=== PATIENT | male | born 1935 | race African-American/Black ===

== ENCOUNTER → 2021-07-19 13:47 | Outpatient (BNVA) | payer MEDICARE, OTHER, SELFPAY | PROVIDERS: Visit Provider Urology | DX: C61 Malignant neoplasm of prostate (principal) | CPT/HCPCS: Q3014 ==

== ENCOUNTER → 2022-01-25 09:40 | Outpatient (BNVA) | payer MEDICARE, OTHER, SELFPAY | PROVIDERS: PCP Hospitalist; Visit Provider Urology | DX: C61 Malignant neoplasm of prostate (principal); M25.569 Pain in unspecified knee; G89.29 Other chronic pain | CPT/HCPCS: 99212 ==

== ENCOUNTER → 2022-07-26 11:17 | Outpatient (BNVA) | payer MEDICARE, OTHER, SELFPAY | PROVIDERS: PCP Hospitalist; Visit Provider Urology | DX: C61 Malignant neoplasm of prostate (principal) | CPT/HCPCS: Q3014 ==

== ENCOUNTER 2023-01-28 14:57 | Outpatient (AMB) | payer MEDICARE, OTHER, SELFPAY ==
[2023-01-28 15:06] VITALS: BP 120/70; PULSE 71
--- NOTE | 2023-01-28 15:06 | HO.NEPHOV_ITS ---
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 He had been on loop diuretics as well as metolazone once a week. For the last many days he has been having worsening edema without any chest pain, shortness of breath, paroxysmal nocturnal dyspnea or orthopnea. His heart rate has been normal. He has no urinary symptoms. He claims to be compliant with a low-sodium diet. He has not had any renal stones for a long time. He otherwise feels well. [facility] Medical History (Updated 02/01/23 @ 06:23 by Shayan Young MD) Hypertension Atrial fibrillation Prostate cancer Hypothyroidism Type I diabetes mellitus Erectile dysfunction Hyperlipidemia GERD (gastroesophageal reflux disease) Cellulitis of left lower extremity Prostate cancer Surgical History H/O aortic valve replacement Social History (Updated 01/28/23 @ 15:09 by Elvira Toledo MA) Alcohol intake: never Patient Tobacco Use Status: Never used Tobacco Vital Signs 01/28/23 15:06 Weight 204 lb 2 oz BP 120/70 Blood Pressure Location Lt brachial Position Sitting Pulse 71 Pulse Source Pulse Oximeter Physical Exam Vital Signs: Last Vital Signs Pulse 71 01/28/23 15:06 BP 120/70 01/28/23 15:06 Const General: comfortable and no acute distress Orientation/consciousness: patient oriented x3 HEENT Head: Yes normocephalic Mouth: Normal oral and palatal mucosa present Eyes EOM: EOMs intact bilaterally Neck Neck: Yes supple Resp Auscultation: clear to auscultation bilaterally Cardio Jugular venous distension: no JVD Rate: regular rate Heart sounds: Murmur heart sound present GI Palpation (GI): Soft to palpation Auscultation: normal bowel sounds General: Yes no CVA tenderness Back/Spine/Pelvis Back: no CVA tenderness Skin General skin exam: no rashes or lesions noted Neuro General: patient oriented x3 and moves all extremities Extrem General: Yes edema Assessment & Plan Assessment & Plan (1) Hypertension: Code(s): I10 - Essential (primary) hypertension Qualifiers: Hypertension type: primary hypertension Qualified Code(s): I10 - Essential (primary) hypertension (2) CKD (chronic kidney disease) stage 3, GFR 30-59 ml/min: Code(s): N18.30 - Chronic kidney disease, stage 3 unspecified Qualifiers: Chronic kidney disease stage 3 subtype: stage 3a (GFR 45-59) Qualified Code(s): N18.31 - Chronic kidney disease, stage 3a (3) Renal stone: Code(s): N20.0 - Calculus of kidney Plan Mr. Buchanan has CKD stage 3 baseline. His renal function has been stable. He has not had any renal stones recently. He should continue furosemide 80 mg twice daily . I increased his metolazone 5 mg to be taken daily for next 5 days followed by 5 mg 2 times a week. He should be strict about low-sodium diet. I didl not make any other medication changes today. Follow-up blood work ordered. All questions answered. Time spent for documentation, patient encounter and retrieval of data 24 minutes. Orders: Orders Electrolytes 01/28/23 I10 - Essential (primary) hypertension, N18.30 - Chronic kidney disease, stage 3 unspecified Blood Urea Nitrogen 01/28/23 I10 - Essential (primary) hypertension, N18.30 - Chronic kidney disease, stage 3 unspecified Calcium 01/28/23 I10 - Essential (primary) hypertension, N18.30 - Chronic kidney disease, stage 3 unspecified Creatinine 01/28/23 I10 - Essential (primary) hypertension, N18.30 - Chronic kidney disease, stage 3 unspecified Uric Acid 01/28/23 I10 - Essential (primary) hypertension, N18.30 - Chronic kidney disease, stage 3 unspecified Medications: New metolazone 5 mg PO DAILY 30 tabs 0RF I10 - Essential (primary) hypertension, N18.30 - Chronic kidney disease, stage 3 unspecified Coding Level of Care Code Est Pt Level 3 (17832) Diagnoses Primary hypertension I10 Hypertension type: primary hypertension Stage 3a chronic kidney disease N18.31 Chronic kidney disease stage 3 subtype: stage 3a (GFR 45-59) Renal stone N20.0
== END 2023-01-28 15:30 | disposition home or self-care (01) ==
PROVIDERS: PCP Hospitalist; Visit Provider Internal Medicine Nephrology
DX: I12.9 Hypertensive chronic kidney disease with stage 1 through stage 4 chronic kidney disease, or unspecified chronic kidney disease (principal); N18.31 Chronic kidney disease, stage 3a; N20.0 Calculus of kidney
CPT/HCPCS: 99213

== ENCOUNTER → 2023-01-28 14:57 | Outpatient (BNVA) | payer MEDICARE, OTHER, SELFPAY | PROVIDERS: PCP Hospitalist; Visit Provider Internal Medicine Nephrology | DX: I12.9 Hypertensive chronic kidney disease with stage 1 through stage 4 chronic kidney disease, or unspecified chronic kidney disease (principal); N18.31 Chronic kidney disease, stage 3a; N20.0 Calculus of kidney; Z79.899 Other long term (current) drug therapy | CPT/HCPCS: 99212 ==

== ENCOUNTER 2023-03-04 11:54 | Outpatient (AMB) | payer MEDICARE, OTHER, SELFPAY ==
--- NOTE | 2023-03-04 11:58 | HO.NEPHOV ---
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 He had been having worsening edema without any chest pain, shortness of breath, paroxysmal nocturnal dyspnea or orthopnea. His diuretics were adjusted at the last visit. His heart rate has been normal. He has no urinary symptoms. He claims to be compliant with a low-sodium diet. He has not had any renal stones for a long time. He otherwise feels well. [facility], [facility] Medical History (Updated 02/01/23 @ 06:23 by Shayan Young MD) Hypertension Atrial fibrillation Prostate cancer Hypothyroidism Type I diabetes mellitus Erectile dysfunction Hyperlipidemia GERD (gastroesophageal reflux disease) Cellulitis of left lower extremity Prostate cancer Surgical History H/O aortic valve replacement Social History Alcohol intake: never Patient Tobacco Use Status: Never used Tobacco Vital Signs 03/04/23 12:05 Height 5 ft 11 in Weight 204 lb BMI 28.4 BP 110/70 Blood Pressure Location Rt brachial Position Sitting Pulse 59 Pulse Source Pulse Oximeter Physical Exam Vital Signs: Last Vital Signs Pulse 59 03/04/23 12:05 BP 110/70 03/04/23 12:05 BMI result Body Mass Index 28.4 Const General: comfortable and no acute distress Orientation/consciousness: patient oriented x3 HEENT Head: Yes normocephalic Mouth: Normal oral and palatal mucosa present Eyes EOM: EOMs intact bilaterally Neck Neck: Yes supple Resp Auscultation: clear to auscultation bilaterally GI Palpation (GI): Soft to palpation Auscultation: normal bowel sounds General: Yes no CVA tenderness Back/Spine/Pelvis Back: no CVA tenderness Skin General skin exam: no rashes or lesions noted Neuro General: patient oriented x3 and moves all extremities Extrem General: Yes no pedal edema Assessment & Plan Assessment & Plan (1) Renal stone: Code(s): N20.0 - Calculus of kidney (2) Hypertension: Code(s): I10 - Essential (primary) hypertension Qualifiers: Hypertension type: primary hypertension Qualified Code(s): I10 - Essential (primary) hypertension (3) CKD (chronic kidney disease) stage 3, GFR 30-59 ml/min: Code(s): N18.30 - Chronic kidney disease, stage 3 unspecified Qualifiers: Chronic kidney disease stage 3 subtype: stage 3a (GFR 45-59) Qualified Code(s): N18.31 - Chronic kidney disease, stage 3a Plan Mr. Buchanan has CKD stage 3 baseline. His renal function has been stable. He has not had any renal stones recently. He should continue furosemide 80 mg twice daily . He can continue metolazone 5 mg 2 times a week. He should be strict about low-sodium diet. I didl not make any other medication changes today. Follow-up blood work ordered. All questions answered. Time spent for documentation, patient encounter and retrieval of data 21 minutes Orders: Orders Electrolytes Today I10 - Essential (primary) hypertension, N18.30 - Chronic kidney disease, stage 3 unspecified, N20.0 - Calculus of kidney Uric Acid Today I10 - Essential (primary) hypertension, N18.30 - Chronic kidney disease, stage 3 unspecified, N20.0 - Calculus of kidney Blood Urea Nitrogen Today I10 - Essential (primary) hypertension, N18.30 - Chronic kidney disease, stage 3 unspecified, N20.0 - Calculus of kidney Creatinine Today I10 - Essential (primary) hypertension, N18.30 - Chronic kidney disease, stage 3 unspecified, N20.0 - Calculus of kidney Coding Level of Care Code Est Pt Level 3 (04511) Diagnoses Renal stone N20.0 Primary hypertension I10 Hypertension type: primary hypertension Stage 3a chronic kidney disease N18.31 Chronic kidney disease stage 3 subtype: stage 3a (GFR 45-59) Results Reviewed Nephrology Results: No Data to Display
[2023-03-04 12:05] VITALS: BP 110/70; PULSE 59; BMI 28.4
== END 2023-03-04 12:28 | disposition home or self-care (01) ==
PROVIDERS: PCP Hospitalist; Visit Provider Internal Medicine Nephrology
DX: N20.0 Calculus of kidney (principal); I10 Essential (primary) hypertension; N18.31 Chronic kidney disease, stage 3a
CPT/HCPCS: 99213

== ENCOUNTER → 2023-03-04 11:54 | Outpatient (BNVA) | payer MEDICARE, OTHER, SELFPAY | PROVIDERS: PCP Hospitalist; Visit Provider Internal Medicine Nephrology | DX: I12.9 Hypertensive chronic kidney disease with stage 1 through stage 4 chronic kidney disease, or unspecified chronic kidney disease (principal); N18.31 Chronic kidney disease, stage 3a; N20.0 Calculus of kidney | CPT/HCPCS: 99212 ==

== ENCOUNTER 2023-04-11 10:08 | Outpatient (AMB) | payer MEDICARE, OTHER, SELFPAY ==
--- NOTE | 2023-04-11 10:09 | A.OFFVIS_ITS ---
Intake Intake Visit Reasons: PSA/Med Review(SET) Intake Note: Patient is Present for Telephone Follow Up PSA Urology Med: Finasteride, Tamsulosin Antibiotic Allergy: None Blood Thinner: Warfarin Allergies No Known Allergies Allergy (Verified 03/04/23 12:07) Medication List - Last Reconciled 04/11/23 by Herrera Hoyos MD allopurinol 100 mg PO DAILY atorvastatin 40 mg PO DAILY blood sugar diagnostic (OneTouch Ultra Test strips) As directed finasteride 5 mg PO DAILY 90 days fluticasone propionate 50 mcg/actuation sprays intranasal furosemide 80 mg (2 x 40 mg) PO BID 90 days insulin detemir U-100 (Levemir FlexTouch U-100 Insulin) units subcut levocetirizine 5 mg PO DAILY levothyroxine 150 mcg PO DAILY metolazone mg PO metolazone 5 mg PO DAILY metoprolol succinate ER 100 mg PO DAILY pen needle, diabetic (BD Ultra-Fine Yoanna Pen Needle) As directed potassium chloride ER 20 mEq PO DAILY prednisone 20 mg PO DAILY tamsulosin 0.4 mg PO BEDTIME 90 days tramadol 50 mg PO TID PRN warfarin (Jantoven) mg PO HPI HPI Comments History of Present Illness Details Ty Buchanan is a very pleasant male. He is a patient of Dr. Reddy. He is seen for the following urologic conditions. - prostate cancer - lower urinary tract symptoms Telemedicine Evaluation 15 min Consultation Doximity Jeremy Video attempted Six month follow-up with well controlled PSA Current therapy finasteride PSA low Refill tamsulosin Last DEXA scan 2015. Will organize since had osteopenia and has had subsequent GnRH therapy. Prostate cancer:? Diagnosis 1998 initial therapy external beam radiation subseq uent intermittent hormone therapy for rising PSA ? PSA stable - current control finasteride ?Review in 6m. ? Prostate cancer was diagnosed?1998. PSA 11.2. ? Diagnosis was reached by?needle biopsy, for elevated PSA.? The Amy grade is?3+4.? TNM Classification of Malignant Tumours (TNM)?T1c.? The D'Anu (NCCN) risk category is?Intermediate Risk (PSA 10-20, Gl 7, T2).? Initial therapy included?1998 Primary treatment, External Beam Radiation Additional treatment, Hormonal Blockade - Intermittent. PSA alan 0.0 ?July 2015, Hormonal Blockade - Intermittent, with, GnRH agonists, Antiandrogen, 5AR alan 0.0 ?02/07 GnRH 6m ? Recent labs included?a PSA (prostate-specific antigen) June 2014 4.8, ?May 2015 16 , doubling time < 12 months, trending upward, ?October 2015 , a PSA (prostate-specific antigen), < 0.1, a testosterone, 20-50 ng/dL ?January 2016 - , a testosterone 7 ?July 2016 , a PSA (prostate-specific antigen), < 0.1, a testosterone 40 ?10/08 , , a PSA (prostate-specific antigen), < 0.1 ?07/10 PSA < 0.1, 03/10 PSA < 0.1, T 60, 11/09 , a PSA (prostate-specific antigen), < 0.1, T 360, 03/11 0.2, 07/11 0.2 T 400, ?12/11 0.2 T 350, 06/11 0.2 T 447, 10/11 0.2. - 08/13 2.4, 01/13 0.7, 07/15 0.4, 04/17 0.3 ? Recent imaging included?a bone scan July 2015 , with no evidence of metastasis ?, a DEXA scan July 2015 normal.? Associated conditions ? erectile dysfunction ?Yes ? hematuria ?No ? hot flashes ?Yes ? incontinence ?No ? osteopenia ?Yes 08/07 Dexa scan ? pathologic fracture ?No ? radiation cystitis ?No ? rectal urgency ?Yes ? Therapeutic plan:?Continue with finasteride. Check PSA in 6 months.? PFS Medical History Hypertension Atrial fibrillation Prostate cancer Hypothyroidism Type I diabetes mellitus Erectile dysfunction Hyperlipidemia GERD (gastroesophageal reflux disease) Cellulitis of left lower extremity Prostate cancer Surgical History H/O aortic valve replacement Social History Alcohol intake: never Patient Tobacco Use Status: Never used Tobacco Review of Systems Const All systems reviewed & are unremarkable except as noted in HPI and below Reports no additional complaints Resp Reports no additional complaints GI Reports no additional complaints Reports as per HPI Musc Reports no additional complaints Physical Exam Telemedicine evaluation Appropriate responses Regular breathing rate and rhythm HEENT Head: Yes normal to inspection Ears: hearing grossly normal bilaterally Eyes General: appearance normal, both eyes and all related structures Neck Neck: Yes normal visual inspection Chest Chest palpation & inspection: normal inspection of the chest Resp Effort & Inspection: normal respiratory effort and able to speak in complete sentences Assessment & Plan Assessment & Plan (1) Osteopenia: Code(s): M85.80 - Other specified disorders of bone density and structure, unspecified site (2) Prostate cancer: Code(s): C61 - Malignant neoplasm of prostate Plan Six-month follow-up DEXA and PSA Orders: Orders XR DEXA axial skeleton 6 Months M85.80 - Other specified disorders of bone density and structure, unspecified site Prostate Specific Antigen 6 Months M85.80 - Other specified disorders of bone density and structure, unspecified site Medications: Refilled finasteride 5 mg PO DAILY 90 days 90 tabs 1RF C61 - Malignant neoplasm of prostate tamsulosin 0.4 mg PO BEDTIME 90 days 90 caps 1RF Patient Instructions: Imaging studies, laboratory and physical exam results were discussed and reviewed in detail. No major barriers to patient understanding were identified. An opportunity to ask questions regarding the treatment plan was provided. All questions were answered. The patient expressed understanding and agreement with the above treatment plan. The patient is aware they should contact our office by phone for worsening of their current condition or the appearance of new urologic symptoms. Compliance is encouraged with any medications and followup testing that is ordered. It is a privilege to participate in the urologic care of your patient. If you have any questions or concerns regarding treatment for the above conditions, or other urologic issues, please do not hesitate to contact me. The office telephone contact is [phone]. This note is constructed using voice recognition software. While every effort has been made to ensure accuracy parts back counter man errors may have been included. Yours sincerely, Dr Herrera Hoyos MD, [facility] - Urology Providers of Expert, Compassionate Care for the Genitourinary System Telehealth Telehealth Location of provider rendering services: practice address Location of patient: address on file Patient Identification confirmed using: Name, : Yes Telehealth method: video Patient verbally consented to treatment: Yes Patient verbally consented to billing insurance company: Yes Patient informed of any privacy concerns related to visit: Yes Coding Level of Care Code Tele Est Pt Level 4 (37913) Diagnoses Osteopenia M85.80 Prostate cancer C61
== END 2023-04-11 11:02 | disposition home or self-care (01) ==
LOC: HO.HUSH 10:08
PROVIDERS: PCP Hospitalist; Visit Provider Urology
DX: M85.80 Other specified disorders of bone density and structure, unspecified site (principal); C61 Malignant neoplasm of prostate
CPT/HCPCS: 99213

== ENCOUNTER → 2023-04-11 10:08 | Outpatient (BNVA) | payer MEDICARE, OTHER, SELFPAY | PROVIDERS: PCP Hospitalist; Visit Provider Urology ==

== ENCOUNTER 2023-06-04 11:40 | Outpatient (AMB) | payer MEDICARE, OTHER, SELFPAY ==
[2023-06-04 11:46] VITALS: BP 114/60; PULSE 96; O2SAT 97; BMI 31.2
--- NOTE | 2023-06-04 11:46 | HO.NEPHOV ---
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 He has been having worsening edema without any chest pain, shortness of breath, paroxysmal nocturnal dyspnea or orthopnea. His heart rate has been normal. He is not very compliant with a low-sodium diet. He has not had any renal stones for a long time. [facility] Medical History Hypertension Atrial fibrillation Prostate cancer Hypothyroidism Type I diabetes mellitus Erectile dysfunction Hyperlipidemia GERD (gastroesophageal reflux disease) Cellulitis of left lower extremity Prostate cancer Surgical History H/O aortic valve replacement Social History Alcohol intake: never Patient Tobacco Use Status: Never used Tobacco Vital Signs 06/04/23 11:46 Height 5 ft 11 in Weight 224 lb BMI 31.2 BP 114/60 Blood Pressure Location Rt brachial Position Sitting Pulse 96 Pulse Source Pulse Oximeter Pulse Oximetry (%) 97 Oxygen Delivery Method Room Air Physical Exam Vital Signs: Last Vital Signs Pulse 96 06/04/23 11:46 BP 114/60 06/04/23 11:46 Pulse Ox 97 06/04/23 11:46 Oxygen Delivery Method Room Air 06/04/23 11:46 BMI result Body Mass Index 31.2 Const General: comfortable and no acute distress Orientation/consciousness: patient oriented x3 HEENT Head: Yes normocephalic Mouth: Normal oral and palatal mucosa present Eyes EOM: EOMs intact bilaterally Neck Neck: Yes supple Resp Auscultation: clear to auscultation bilaterally Cardio Jugular venous distension: no JVD Rate: regular rate GI Palpation (GI): Soft to palpation Auscultation: normal bowel sounds General: Yes no CVA tenderness Back/Spine/Pelvis Back: no CVA tenderness Skin General skin exam: no rashes or lesions noted Neuro General: patient oriented x3 and moves all extremities Extrem Other: Cellulitis R lower leg Bipedal edema +++ Assessment & Plan Assessment & Plan (1) Cellulitis: Code(s): L03.90 - Cellulitis, unspecified Qualifiers: Site of cellulitis: extremity Site of cellulitis of extremity: lower extremity Laterality: right Qualified Code(s): L03.115 - Cellulitis of right lower limb (2) CKD (chronic kidney disease) stage 3, GFR 30-59 ml/min: Code(s): N18.30 - Chronic kidney disease, stage 3 unspecified Qualifiers: Chronic kidney disease stage 3 subtype: stage 3a (GFR 45-59) Qualified Code(s): N18.31 - Chronic kidney disease, stage 3a (3) Hypertension: Code(s): I10 - Essential (primary) hypertension Qualifiers: Hypertension type: primary hypertension Qualified Code(s): I10 - Essential (primary) hypertension (4) Renal stone: Code(s): N20.0 - Calculus of kidney (5) Edema: Code(s): R60.9 - Edema, unspecified Qualifiers: Edema type: localized Qualified Code(s): R60.0 - Localized edema Plan Mr. Buchanan has CKD stage 3 baseline. His renal function had been stable. I prescribed him Doxycycline 100 mg bid for 10 days. He has not had any renal stones recently. I increased his furosemide to 120 mg twice daily for 5 days and reduce it to 80 mg bid after the increased course for 5 days. I also increased his metolazone to 5 mg daily for 3 days followed by 2 times a week. He should be strict about low-sodium diet. I did not make any other medication changes today. Follow-up blood work ordered. All questions answered. Orders: Orders Blood Urea Nitrogen Today I10 - Essential (primary) hypertension, N18.30 - Chronic kidney disease, stage 3 unspecified, N20.0 - Calculus of kidney Electrolytes Today I10 - Essential (primary) hypertension, N18.30 - Chronic kidney disease, stage 3 unspecified, N20.0 - Calculus of kidney Creatinine Today I10 - Essential (primary) hypertension, N18.30 - Chronic kidney disease, stage 3 unspecified, N20.0 - Calculus of kidney Uric Acid Today I10 - Essential (primary) hypertension, N18.30 - Chronic kidney disease, stage 3 unspecified, N20.0 - Calculus of kidney Medications: New doxycycline hyclate 100 mg PO BID 20 caps 0RF Coding Level of Care Code Est Pt Level 4 (32963) Diagnoses Cellulitis of right lower extremity L03.115 Site of cellulitis: extremity Site of cellulitis of extremity: lower extremity Laterality: right Stage 3a chronic kidney disease N18.31 Chronic kidney disease stage 3 subtype: stage 3a (GFR 45-59) Primary hypertension I10 Hypertension type: primary hypertension Renal stone N20.0 Localized edema R60.0 Edema type: localized Results Reviewed Nephrology Results: No Data to Display
== END 2023-06-04 12:28 | disposition home or self-care (01) ==
PROVIDERS: PCP Hospitalist; Visit Provider Internal Medicine Nephrology
DX: L03.115 Cellulitis of right lower limb (principal); N18.31 Chronic kidney disease, stage 3a; I10 Essential (primary) hypertension; N20.0 Calculus of kidney; R60.0 Localized edema
CPT/HCPCS: 99214

== ENCOUNTER → 2023-06-04 11:40 | Outpatient (BNVA) | payer MEDICARE, OTHER, SELFPAY | PROVIDERS: PCP Hospitalist; Visit Provider Internal Medicine Nephrology | DX: I12.9 Hypertensive chronic kidney disease with stage 1 through stage 4 chronic kidney disease, or unspecified chronic kidney disease (principal); N18.31 Chronic kidney disease, stage 3a; N20.0 Calculus of kidney; R60.0 Localized edema; L03.115 Cellulitis of right lower limb | CPT/HCPCS: 99212 ==

== ENCOUNTER 2023-08-01 09:38 | Outpatient (AMB) | payer MEDICARE, OTHER, SELFPAY ==
[2023-08-01 09:51] VITALS: BP 110/60; PULSE 102; O2SAT 100; BMI 30.3
--- NOTE | 2023-08-01 09:51 | HO.NEPHOV ---
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 He has been having worsening edema without any chest pain, shortness of breath, paroxysmal nocturnal dyspnea or orthopnea. He recently had cellulitis and was in the hospital and rehab. His medications have been changed and he is confused with the medication changes. His heart rate has been normal. He is not very compliant with a low-sodium diet. He has not had any renal stones for a long time [facility] Medical History Hypertension Atrial fibrillation Prostate cancer Hypothyroidism Type I diabetes mellitus Erectile dysfunction Hyperlipidemia GERD (gastroesophageal reflux disease) Cellulitis of left lower extremity Prostate cancer Surgical History H/O aortic valve replacement Social History Alcohol intake: never Patient Tobacco Use Status: Never used Tobacco Physical Exam Vital Signs: Last Vital Signs Pulse 102 H 08/01/23 09:51 BP 110/60 08/01/23 09:51 Pulse Ox 100 08/01/23 09:51 Oxygen Delivery Method Room Air 08/01/23 09:51 BMI result Body Mass Index 30.3 Const General: comfortable and no acute distress Orientation/consciousness: patient oriented x3 HEENT Head: Yes normocephalic Mouth: Normal oral and palatal mucosa present Eyes EOM: EOMs intact bilaterally Neck Neck: Yes supple Resp Auscultation: clear to auscultation bilaterally Cardio Jugular venous distension: no JVD Rate: regular rate GI Palpation (GI): Soft to palpation Auscultation: normal bowel sounds General: Yes no CVA tenderness Back/Spine/Pelvis Back: no CVA tenderness Skin General skin exam: no rashes or lesions noted Neuro General: patient oriented x3 and moves all extremities Results Reviewed Nephrology Results: No Data to Display Assessment & Plan Assessment & Plan (1) Hypertension: Code(s): I10 - Essential (primary) hypertension Category: Medical Qualifiers: Hypertension type: primary hypertension Qualified Code(s): I10 - Essential (primary) hypertension (2) CKD (chronic kidney disease) stage 3, GFR 30-59 ml/min: Code(s): N18.30 - Chronic kidney disease, stage 3 unspecified Category: Medical Qualifiers: Chronic kidney disease stage 3 subtype: stage 3a (GFR 45-59) Qualified Code(s): N18.31 - Chronic kidney disease, stage 3a Plan Mr. Buchanan has CKD stage 3 baseline. His renal function are currently stable. He has not had any renal stones recently. He can continue current dose of torsemide. I restarted metolazone 5 mg daily once a week. I D/Bill his KCl given he is on Spironolactone. He should be strict about low-sodium diet. I did not make any other medication changes today. Follow-up blood work ordered. All questions answered. Time spent reviewing data, encounter and documentation 53 minutes. He can have SGLT2 inhibitor. We may have to back off on Metolazone when he is initiated on SGLT2 I. Follow up given Orders: Orders Blood Urea Nitrogen Today I10 - Essential (primary) hypertension, N18.31 - Chronic kidney disease, stage 3a Creatinine Today I10 - Essential (primary) hypertension, N18.31 - Chronic kidney disease, stage 3a Electrolytes Today I10 - Essential (primary) hypertension, N18.31 - Chronic kidney disease, stage 3a Calcium Today I10 - Essential (primary) hypertension, N18.31 - Chronic kidney disease, stage 3a Coding Level of Care Code Est Pt Level 5 (53728) Diagnoses Primary hypertension I10 Hypertension type: primary hypertension Stage 3a chronic kidney disease N18.31 Chronic kidney disease stage 3 subtype: stage 3a (GFR 45-59)
== END 2023-08-01 10:25 | disposition home or self-care (01) ==
PROVIDERS: PCP Hospitalist; Visit Provider Internal Medicine Nephrology
DX: I12.9 Hypertensive chronic kidney disease with stage 1 through stage 4 chronic kidney disease, or unspecified chronic kidney disease (principal); N18.31 Chronic kidney disease, stage 3a
CPT/HCPCS: 99215

== ENCOUNTER → 2023-08-01 09:38 | Outpatient (BNVA) | payer MEDICARE, OTHER, SELFPAY | PROVIDERS: PCP Hospitalist; Visit Provider Internal Medicine Nephrology | DX: I12.9 Hypertensive chronic kidney disease with stage 1 through stage 4 chronic kidney disease, or unspecified chronic kidney disease (principal); N18.31 Chronic kidney disease, stage 3a | CPT/HCPCS: 99212 ==

== ENCOUNTER 2023-08-27 13:25 | Outpatient (AMB) | payer MEDICARE, OTHER, SELFPAY ==
[2023-08-27 13:43] VITALS: BP 110/62; PULSE 64; O2SAT 98; BMI 28.3
--- NOTE | 2023-08-27 13:43 | HO.NEPHOV ---
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 He had been having worsening edema without any chest pain, shortness of breath, paroxysmal nocturnal dyspnea or orthopnea, which is better . He recently had cellulitis and was in the hospital and rehab at that time.His heart rate has been normal. He is not very compliant with a low-sodium diet. He has not had any renal stones for a long time [facility] Medical History Hypertension Atrial fibrillation Prostate cancer Hypothyroidism Type I diabetes mellitus Erectile dysfunction Hyperlipidemia GERD (gastroesophageal reflux disease) Cellulitis of left lower extremity Prostate cancer Surgical History H/O aortic valve replacement Social History Alcohol intake: never Patient Tobacco Use Status: Never used Tobacco Physical Exam Vital Signs: Last Vital Signs Pulse 64 08/27/23 13:43 BP 110/62 08/27/23 13:43 Pulse Ox 98 08/27/23 13:43 Oxygen Delivery Method Room Air 08/27/23 13:43 BMI result Body Mass Index 28.3 Const General: comfortable and no acute distress Orientation/consciousness: patient oriented x3 HEENT Head: Yes normocephalic Mouth: Normal oral and palatal mucosa present Eyes EOM: EOMs intact bilaterally Neck Neck: Yes supple Resp Auscultation: clear to auscultation bilaterally Cardio Jugular venous distension: no JVD Rate: regular rate GI Palpation (GI): Soft to palpation Auscultation: normal bowel sounds General: Yes no CVA tenderness Back/Spine/Pelvis Back: no CVA tenderness Skin General skin exam: no rashes or lesions noted Neuro General: patient oriented x3 and moves all extremities Extrem General: Yes no pedal edema Results Reviewed Nephrology Results: No Data to Display Assessment & Plan Assessment & Plan (1) CKD (chronic kidney disease) stage 3, GFR 30-59 ml/min: Code(s): N18.30 - Chronic kidney disease, stage 3 unspecified Category: Medical Qualifiers: Chronic kidney disease stage 3 subtype: stage 3a (GFR 45-59) Qualified Code(s): N18.31 - Chronic kidney disease, stage 3a (2) Hypertension: Code(s): I10 - Essential (primary) hypertension Category: Medical Qualifiers: Hypertension type: primary hypertension Qualified Code(s): I10 - Essential (primary) hypertension (3) Renal stone: Code(s): N20.0 - Calculus of kidney Category: Medical Plan Mr. Buchanan has CKD stage 3 baseline. His renal function are currently stable. He has not had any renal stones recently. He can continue current dose of torsemide. I restarted metolazone 5 mg daily once a week. I D/Bill his KCl at the last visit given he is on Spironolactone. He should be strict about low-sodium diet. I did not make any other medication changes today. Follow-up blood work ordered. All questions answered. He can have SGLT2 inhibitor. We may have to back off on Metolazone when he is initiated on SGLT2 I. Follow up given Orders: Orders Creatinine Today I10 - Essential (primary) hypertension, N18.31 - Chronic kidney disease, stage 3a, N20.0 - Calculus of kidney Blood Urea Nitrogen Today I10 - Essential (primary) hypertension, N18.31 - Chronic kidney disease, stage 3a, N20.0 - Calculus of kidney Electrolytes Today I10 - Essential (primary) hypertension, N18.31 - Chronic kidney disease, stage 3a, N20.0 - Calculus of kidney Creatinine 3 Months I10 - Essential (primary) hypertension, N18.31 - Chronic kidney disease, stage 3a, N20.0 - Calculus of kidney Blood Urea Nitrogen 3 Months I10 - Essential (primary) hypertension, N18.31 - Chronic kidney disease, stage 3a, N20.0 - Calculus of kidney Electrolytes 3 Months I10 - Essential (primary) hypertension, N18.31 - Chronic kidney disease, stage 3a, N20.0 - Calculus of kidney Calcium Today I10 - Essential (primary) hypertension, N18.31 - Chronic kidney disease, stage 3a, N20.0 - Calculus of kidney Uric Acid Today I10 - Essential (primary) hypertension, N18.31 - Chronic kidney disease, stage 3a, N20.0 - Calculus of kidney Coding Level of Care Code Est Pt Level 4 (49383) Diagnoses Stage 3a chronic kidney disease N18.31 Chronic kidney disease stage 3 subtype: stage 3a (GFR 45-59) Primary hypertension I10 Hypertension type: primary hypertension Renal stone N20.0
== END 2023-08-27 14:06 | disposition home or self-care (01) ==
PROVIDERS: PCP Hospitalist; Visit Provider Internal Medicine Nephrology
DX: N18.31 Chronic kidney disease, stage 3a (principal); I10 Essential (primary) hypertension; N20.0 Calculus of kidney
CPT/HCPCS: 99214

== ENCOUNTER → 2023-08-27 13:25 | Outpatient (BNVA) | payer MEDICARE, OTHER, SELFPAY | PROVIDERS: PCP Hospitalist; Visit Provider Internal Medicine Nephrology | DX: I12.9 Hypertensive chronic kidney disease with stage 1 through stage 4 chronic kidney disease, or unspecified chronic kidney disease (principal); N18.31 Chronic kidney disease, stage 3a; N20.0 Calculus of kidney | CPT/HCPCS: 36415; 80051; 82310; 82565; 84520; 84550; 99212 ==

== ENCOUNTER 2023-08-27 14:08 | Outpatient (REF) | payer MEDICARE, OTHER, SELFPAY ==
[2023-08-27 18:32] LABS: Anion Gap 15 (12-20); Blood Urea Nitrogen 64 mg/dL (9-16); Calcium 9.2 mg/dL (8.4-10.2); Carbon Dioxide 32 mmol/L (22-29); Chloride 96 mmol/L (96-108); Estimated Glomerular Filt Rate 42; Potassium 3.1 mmol/L (3.3-5.1); Sodium 140 mmol/L (135-145); Uric Acid 10.9 mg/dL (3.4-7.0)
== END 2023-08-27 14:09 | disposition home or self-care (01) ==
LOC: HO.HKASLDS 14:08
PROVIDERS: Visit Provider Internal Medicine Nephrology
DX: Z13.89 Encounter for screening for other disorder (principal)
CPT/HCPCS: 36415; 80051; 82310; 82565; 84520; 84550

== ENCOUNTER 2023-11-21 13:50 | Outpatient (REF) | payer MEDICARE, OTHER, SELFPAY ==
--- NOTE | ~2023-11-21 | MM_ITS ---
EXAMINATION: BONE DENSITOMETRY CLINICAL INDICATION: Osteopenia. COMPARISON: This is the patient's baseline examination. TECHNIQUE: Using a [employer] DXA System (software version: 13.1) manufactured by [employer], dual-energy x-ray absorptiometry was performed of the lumbar spine and left hip. The images are of good technical quality. Summary results are attached. FINDINGS: LEFT FEMUR, NECK: BMD 0.732 g/cm2, Z-score -2.2, T-score -2.6, osteoporosis. LEFT FEMUR, TOTAL: BMD 0.858 g/cm2, Z-score -1.5, T-score -1.7, osteopenia. AP SPINE L1-L4: BMD 1.664 g/cm2, Z-score 3.3, T-score 3.7, normal. IDENTIFIED RISK FACTORS: Secondary osteoporosis (intestinal or bowel disease). HISTORY OF FRACTURE: None listed. MEDICATIONS: Multivitamin. MM/XR DEXA axial skeleton IMPRESSION: 1. DIAGNOSIS: Osteoporosis based on the lowest T-score value of -2.6 in the femoral neck applying World Health Organization criteria. 2. 10-YEAR FRACTURE RISK PREDICTION, FRAX: According to the guidelines, FRAX calculation should only be performed on patients in the osteopenia bone density category. Therefore, FRAX was not performed on this patient. 3. Treatment Recommendations: NOF guidelines recommend consideration for treatment in postmenopausal women and men age 50 and older presenting with the following: -A hip or vertebral (clinical or morphometric) fracture. -T-score less than or equal to -2.5 at the femoral neck or spine after appropriate evaluation to exclude secondary causes. -Low bone mass at the hip or spine and a 10-year fracture probability by FRAX of greater than or equal to 3% for hip fracture or greater than or equal to 20% for major osteoporotic fracture based on the [place] adapted WHO algorithm. 4. Other Recommendations: All treatment decisions require clinical judgment and consideration of individual patient factors, including patient preferences, comorbidities, previous drug use, risk factors not captured in the FRAX model (e.g. frailty, falls, vitamin D deficiency, increased bone turnover, interval significant decline in bone density) and possible under or overestimation of fracture risk by FRAX. Additional medical evaluation for secondary cause of low bone mineral density may be appropriate. FUTURE SCAN RECOMMENDATION: People with diagnosed cases of osteoporosis or at high risk for fracture should have regular bone mineral density tests. For patients eligible for Medicare, routine testing is allowed once every 2 years. The testing frequency can be increased to one year for patients who have rapidly progressing disease, those who are receiving or discontinuing medical therapy to restore bone mass, or have additional risk factors. Electronically signed by: Gilbert Martinez MD 11/26/2023 11:15 AM JACINTO
== END 2023-11-21 13:51 | disposition home or self-care (01) ==
LOC: HO.MAMMO 13:50
PROVIDERS: PCP Hospitalist; Visit Provider Urology
DX: Z13.820 Encounter for screening for osteoporosis (principal); M85.80 Other specified disorders of bone density and structure, unspecified site; M81.0 Age-related osteoporosis without current pathological fracture
CPT/HCPCS: 77080

== ENCOUNTER 2023-11-26 14:05 | Outpatient (AMB) | payer MEDICARE, OTHER, SELFPAY ==
--- NOTE | 2023-11-26 14:13 | HO.NEPHOV_ITS ---
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 He had been having edema without any chest pain, shortness of breath, paroxysmal nocturnal dyspnea or orthopnea, which is better . He has H/O recent cellulitis and was in the hospital and rehab at that time.His heart rate has been normal. He is not very compliant with a low-sodium diet. He has not had any renal stones for a long time. His serum creatinine is close to baseline [facility] Medical History Hypertension Atrial fibrillation Prostate cancer Hypothyroidism Type I diabetes mellitus Erectile dysfunction Hyperlipidemia GERD (gastroesophageal reflux disease) Cellulitis of left lower extremity Prostate cancer Surgical History H/O aortic valve replacement Social History Alcohol intake: never Patient Tobacco Use Status: Never used Tobacco Review of Systems Const All systems reviewed & are unremarkable except as noted in HPI and below Physical Exam Vital Signs: Last Vital Signs Pulse 71 11/26/23 14:23 BP 110/60 11/26/23 14:23 Pulse Ox 98 11/26/23 14:23 Oxygen Delivery Method Room Air 11/26/23 14:23 BMI result Body Mass Index 29.1 Const General: comfortable and no acute distress Orientation/consciousness: patient oriented x3 HEENT Head: Yes normocephalic Mouth: Normal oral and palatal mucosa present Eyes EOM: EOMs intact bilaterally Neck Neck: Yes supple Resp Auscultation: clear to auscultation bilaterally Cardio Jugular venous distension: no JVD Rate: regular rate GI Palpation (GI): Soft to palpation Auscultation: normal bowel sounds General: Yes no CVA tenderness Back/Spine/Pelvis Back: no CVA tenderness Skin General skin exam: no rashes or lesions noted Neuro General: patient oriented x3 and moves all extremities Results Reviewed Nephrology Results: Sodium 140 mmol/L (135-145) 08/27/23 Potassium 3.1 mmol/L (3.3-5.1) L 08/27/23 Chloride 96 mmol/L (96-108) 08/27/23 Carbon Dioxide 32 mmol/L (22-29) H 08/27/23 BUN 64 mg/dL (9-16) H 08/27/23 Creatinine 1.56 mg/dL (0.5-1.4) H 08/27/23 Calcium 9.2 mg/dL (8.4-10.2) 08/27/23 Assessment & Plan Assessment & Plan (1) CKD (chronic kidney disease) stage 3, GFR 30-59 ml/min: Code(s): N18.30 - Chronic kidney disease, stage 3 unspecified Category: Medical Qualifiers: Chronic kidney disease stage 3 subtype: stage 3a (GFR 45-59) Qualified Code(s): N18.31 - Chronic kidney disease, stage 3a (2) Hypertension: Code(s): I10 - Essential (primary) hypertension Category: Medical Qualifiers: Hypertension type: primary hypertension Qualified Code(s): I10 - Essential (primary) hypertension (3) Renal stone: Code(s): N20.0 - Calculus of kidney Category: Medical Plan Mr. Buchanan has CKD stage 3 baseline. His renal function are currently stable. He has not had any renal stones recently. He can continue current dose of torsemide. He is on Spironolactone. He should be strict about low-sodium diet. I did not make any other medication changes today. Follow-up blood work ordered. All questions answered. He is on SGLT2 inhibitor. Follow up given Orders: Orders Electrolytes Today I10 - Essential (primary) hypertension, N18.31 - Chronic kidney disease, stage 3a, N20.0 - Calculus of kidney Blood Urea Nitrogen Today I10 - Essential (primary) hypertension, N18.31 - Chronic kidney disease, stage 3a, N20.0 - Calculus of kidney Creatinine Today I10 - Essential (primary) hypertension, N18.31 - Chronic kidney disease, stage 3a, N20.0 - Calculus of kidney Blood Urea Nitrogen 3 Months I10 - Essential (primary) hypertension, N18.31 - Chronic kidney disease, stage 3a, N20.0 - Calculus of kidney Creatinine 3 Months I10 - Essential (primary) hypertension, N18.31 - Chronic kidney disease, stage 3a, N20.0 - Calculus of kidney Electrolytes 3 Months I10 - Essential (primary) hypertension, N18.31 - Chronic kidney disease, stage 3a, N20.0 - Calculus of kidney Uric Acid 3 Months N18.31 - Chronic kidney disease, stage 3a Coding Level of Care Code Est Pt Level 4 (29034) Diagnoses Stage 3a chronic kidney disease N18.31 Chronic kidney disease stage 3 subtype: stage 3a (GFR 45-59) Primary hypertension I10 Hypertension type: primary hypertension Renal stone N20.0
[2023-11-26 14:23] VITALS: BP 110/60; PULSE 71; O2SAT 98; BMI 29.1
== END 2023-11-26 14:46 | disposition home or self-care (01) ==
PROVIDERS: PCP Hospitalist; Visit Provider Internal Medicine Nephrology
DX: N18.31 Chronic kidney disease, stage 3a (principal); I10 Essential (primary) hypertension; N20.0 Calculus of kidney
CPT/HCPCS: 99214

== ENCOUNTER → 2023-11-26 14:05 | Outpatient (BNVA) | payer MEDICARE, OTHER, SELFPAY | PROVIDERS: PCP Hospitalist; Visit Provider Internal Medicine Nephrology | DX: I12.9 Hypertensive chronic kidney disease with stage 1 through stage 4 chronic kidney disease, or unspecified chronic kidney disease (principal); N18.31 Chronic kidney disease, stage 3a; N20.0 Calculus of kidney | CPT/HCPCS: 99212 ==

== ENCOUNTER 2023-12-06 15:09 | Outpatient (AMB) | payer MEDICARE, OTHER, SELFPAY ==
--- NOTE | 2023-12-06 15:21 | A.OFFVIS_ITS ---
Intake Visit Reasons: 6m/bone scan/PSA Intake Note: Patient is present for 6M/ BONE SCAN/PSA Urology Medication:TAMSULOSIN, FINASTERIDE Antibiotic Allergy:NONE Blood Thinner:WARARIN Chipper Machine Operator Required: No Allergies No Known Allergies Allergy (Verified 12/06/23 15:24) Medication List - Last Reconciled 12/06/23 by Herrera Hoyos MD alendronate 70 mg PO QWEEK 12 weeks allopurinol 100 mg PO DAILY atorvastatin 40 mg PO DAILY blood sugar diagnostic (RedDrummeruch Ultra Test strips) As directed clotrimazole-betamethasone 1-0.05 % 1 appl topical BID 4 weeks empagliflozin (Jardiance) 10 mg PO DAILY ferrous sulfate 325 mg PO DAILY finasteride 5 mg PO DAILY 90 days insulin glargine 20 units subcut QAM levothyroxine 75 mcg PO DAILY metolazone 5 mg PO QWEEK metoprolol succinate ER 100 mg PO DAILY omeprazole 20 mg PO DAILY pen needle, diabetic (BD Ultra-Fine Yoanna Pen Needle) As directed spironolactone 25 mg PO DAILY tamsulosin 0.4 mg PO BEDTIME 90 days torsemide 40 mg PO QAM warfarin (Jantoven) mg PO HPI Comments Details: Ty Buchanan is a very pleasant male. He is a patient of Dr. Reddy. He is seen for the following urologic conditions. - prostate cancer - lower urinary tract symptoms Six month follow-up with well controlled PSA Current therapy finasteride PSA low Refill tamsulosin Last DEXA scan 2015. Will organize since had osteopenia and has had subsequent GnRH therapy. Prostate cancer:? Diagnosis 1998 initial therapy external beam radiation subsequent intermittent hormone therapy for rising PSA ? PSA stable - current control finasteride ?Review in 6m. ? Prostate cancer was diagnosed?1998. PSA 11.2. ? Diagnosis was reached by?needle biopsy, for elevated PSA.? The Amy grade is?3+4.? TNM Classification of Malignant Tumours (TNM)?T1c.? The D'Anu (NCCN) risk category is?Intermediate Risk (PSA 10-20, Gl 7, T2).? Initial therapy included?1998 Primary treatment, External Beam Radiation Additional treatment, Hormonal Blockade - Intermittent. PSA alan 0.0 ?July 2015, Hormonal Blockade - Intermittent, with, GnRH agonists, Antiandrogen, 5AR alan 0.0 ?02/07 GnRH 6m ? Recent labs included?a PSA (prostate-specific antigen) June 2014 4.8, ?May 2015 16 , doubling time < 12 months, trending upward, ?October 2015 , a PSA (prostate-specific antigen), < 0.1, a testosterone, 20-50 ng/dL ?January 2016 - , a testosterone 7 ?July 2016 , a PSA (prostate-specific antigen), < 0.1, a testosterone 40 ?10/08 , , a PSA (prostate-specific antigen), < 0.1 ?07/10 PSA < 0.1, 03/10 PSA < 0.1, T 60, 11/09 , a PSA (prostate-specific antigen), < 0.1, T 360, 03/11 0.2, 07/11 0.2 T 400, ?12/11 0.2 T 350, 06/11 0.2 T 447, 10/11 0.2. - 08/13 2.4, 01/13 0.7, 07/15 0.4, 04/17 0.3 ? Recent imaging included?a bone scan July 2015 , with no evidence of metastasis ?, a DEXA scan July 2015 normal - DEXA scan 10/15 Osteoporosis based on the lowest T-score value of -2.6 in the femoral neck ? Associated conditions ? erectile dysfunction ?Yes ? hematuria ?No ? hot flashes ?Yes ? incontinence ?No ? osteopenia ?Yes 08/07 Dexa scan ? pathologic fracture ?No ? radiation cystitis ?No ? rectal urgency ?Yes ? Therapeutic plan:?Continue with finasteride. Check PSA in 6 months.? PFSH Medical History Hypertension Atrial fibrillation Prostate cancer Hypothyroidism Type I diabetes mellitus Erectile dysfunction Hyperlipidemia GERD (gastroesophageal reflux disease) Cellulitis of left lower extremity Prostate cancer Surgical History H/O aortic valve replacement Social History Alcohol intake: never Patient Tobacco Use Status: Never used Tobacco Review of Systems Const Denies chills and Denies fever(s) Card Reports no additional complaints and Denies syncope Resp Denies cough GI Denies abdominal pain and Denies heartburn Reports as per HPI and Denies change in libido Neuro Denies syncope Psych Denies change in libido Endo Denies change in libido Physical Exam Const General: cooperative, healthy appearing, comfortable and no acute distress Orientation/consciousness: patient oriented x3 HEENT Face and sinus: Yes normal facial exam Mouth: moist mucous membranes Neck Neck: Yes normal visual inspection, Yes full ROM and Yes trachea midline Chest Chest palpation & inspection: normal inspection of the chest Resp Effort & Inspection: normal respiratory effort, able to speak in complete sentences and no respiratory distress GI Inspection: Yes normal to inspection Back/Spine/Pelvis Cervical Spine: normal cervical lordosis Thoracic/Lumbar Spine: thoracic and lumbar spine normal to inspection Skin General skin exam: no rashes or lesions noted Neuro General: patient oriented x3, gait normal, tone normal and moves all extremities Extrem General: Yes normal to inspection and Yes capillary refill normal Assessment & Plan Assessment & Plan (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: Code(s): M81.8 - Other osteoporosis without current pathological fracture; T38.7X5A - Adverse effect of androgens and anabolic congeners, initial encounter Category: Medical (2) Prostate cancer: Code(s): C61 - Malignant neoplasm of prostate Category: Medical (3) Balanitis: Code(s): N48.1 - Balanitis Category: Medical Plan Clotrimazole cream PSA six-month Start weekly alendronate Orders: Orders Prostate Specific Antigen 6 Months M81.8 - Other osteoporosis without current pathological fracture, T38.7X5A - Adverse effect of androgens and anabolic congeners, initial encounter Medications: New clotrimazole-betamethasone 1-0.05 % Apply thin coat 2 times per day 1 appl topical BID 45 grams 0RF 4 weeks N48.1 - Balanitis alendronate 70 mg PO QWEEK 12 ea 1RF 12 weeks M81.8 - Other osteoporosis without current pathological fracture, T38.7X5A - Adverse effect of androgens and anabolic congeners, initial encounter, M85.80 - Other specified disorders of bone density and structure, unspecified site Patient Instructions: Imaging studies, laboratory and physical exam results were discussed and reviewed in detail. No major barriers to patient understanding were identified. An opportunity to ask questions regarding the treatment plan was provided. All questions were answered. The patient expressed understanding and agreement with the above treatment plan. The patient is aware they should contact our office by phone for worsening of their current condition or the appearance of new urologic symptoms. Compliance is encouraged with any medications and followup testing that is ordered. It is a privilege to participate in the urologic care of your patient. If you have any questions or concerns regarding treatment for the above conditions, or other urologic issues, please do not hesitate to contact me. The office telephone contact is [phone]. This note is constructed using voice recognition software. While every effort has been made to ensure accuracy air lift operator errors may have been included. Yours sincerely, Dr Herrera Hoyos MD, [facility] - Urology Providers of Expert, Compassionate Care for the Genitourinary System Coding Level of Care Code Est Pt Level 4 (54864) Diagnoses Osteoporosis due to androgen therapy M81.8; T38.7X5A Prostate cancer C61 Balanitis N48.1
== END 2023-12-06 16:00 | disposition home or self-care (01) ==
PROVIDERS: PCP Hospitalist; Visit Provider Urology
DX: M81.8 Other osteoporosis without current pathological fracture (principal); T38.7X5A Adverse effect of androgens and anabolic congeners, initial encounter; C61 Malignant neoplasm of prostate; N48.1 Balanitis
CPT/HCPCS: 99214

== ENCOUNTER → 2023-12-06 15:09 | Outpatient (BNVA) | payer MEDICARE, OTHER, SELFPAY | PROVIDERS: PCP Hospitalist; Visit Provider Urology | DX: N52.9 Male erectile dysfunction, unspecified (principal); C61 Malignant neoplasm of prostate; M81.8 Other osteoporosis without current pathological fracture; N48.1 Balanitis; T38.7X5A Adverse effect of androgens and anabolic congeners, initial encounter; X58.XXXA Exposure to other specified factors, initial encounter; Y93.9 Activity, unspecified; Y92.9 Unspecified place or not applicable; Y99.9 Unspecified external cause status | CPT/HCPCS: 99212 ==

== ENCOUNTER 2024-02-27 13:53 | Outpatient (AMB) | payer MEDICARE, OTHER, SELFPAY ==
--- NOTE | 2024-02-27 14:16 | HO.NEPHOV_ITS ---
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 He had been having edema without any chest pain, shortness of breath, paroxysmal nocturnal dyspnea or orthopnea . He is on Jardiance as well as Spironolactone and closely follows up with Dr Plasencia. He is not very compliant with a low-sodium diet. He has not had any renal stones for a long time. He has been having frequency of micturition without any fever, hematuria, nausea or vomiting. He has not been taking Metolazone. He is frustrated with his general debility [facility] Medical History Hypertension Atrial fibrillation Prostate cancer Hypothyroidism Type I diabetes mellitus Erectile dysfunction Hyperlipidemia GERD (gastroesophageal reflux disease) Cellulitis of left lower extremity Prostate cancer Surgical History H/O aortic valve replacement Social History Alcohol intake: never Patient Tobacco Use Status: Never used Tobacco Review of Systems Const All systems reviewed & are unremarkable except as noted in HPI and below Physical Exam Vital Signs: Last Vital Signs BP 114/70 02/27/24 14:17 Const General: comfortable and no acute distress Orientation/consciousness: patient oriented x3 HEENT Head: Yes normocephalic Mouth: Normal oral and palatal mucosa present Eyes EOM: EOMs intact bilaterally Neck Neck: Yes supple Resp Auscultation: clear to auscultation bilaterally Cardio Jugular venous distension: no JVD Rate: regular rate GI Palpation (GI): Soft to palpation Auscultation: normal bowel sounds General: Yes no CVA tenderness Back/Spine/Pelvis Back: no CVA tenderness Skin General skin exam: no rashes or lesions noted Neuro General: patient oriented x3 and moves all extremities Extrem General: Yes edema Results Reviewed Nephrology Results: Sodium 140 mmol/L (135-145) 06/04/24 Potassium 3.1 mmol/L (3.3-5.1) L 08/27/23 Chloride 96 mmol/L (96-108) 08/27/23 Carbon Dioxide 32 mmol/L (22-29) H 08/27/23 BUN 64 mg/dL (9-16) H 08/27/23 Creatinine 1.56 mg/dL (0.5-1.4) H 08/27/23 Calcium 9.2 mg/dL (8.4-10.2) 08/27/23 Assessment & Plan Assessment & Plan (1) Dysuria: Code(s): R30.0 - Dysuria Category: Medical (2) CKD (chronic kidney disease) stage 3, GFR 30-59 ml/min: Code(s): N18.30 - Chronic kidney disease, stage 3 unspecified Category: Medical Qualifiers: Chronic kidney disease stage 3 subtype: stage 3a (GFR 45-59) Qualified Code(s): N18.31 - Chronic kidney disease, stage 3a (3) Hypertension: Code(s): I10 - Essential (primary) hypertension Category: Medical Qualifiers: Hypertension type: primary hypertension Qualified Code(s): I10 - Essential (primary) hypertension (4) Renal stone: Code(s): N20.0 - Calculus of kidney Category: Medical Plan Mr. Buchanan has CKD stage 3 B @ baseline. His renal function are relatively stable. He has not had any renal stones recently. He can continue current dose of torsemide. He is on Spironolactone. He should be strict about low-sodium diet. I did not make any other medication changes today. Urine culture as well as follow-up blood work ordered. He can take one dose of metolazone 5 mg this week and next week. All questions answered. He is on SGLT2 inhibitor. Follow up given Orders: Orders Urine Culture Today R30.0 - Dysuria Electrolytes 1 Month I10 - Essential (primary) hypertension, N18.31 - Chronic kidney disease, stage 3a, N20.0 - Calculus of kidney Creatinine 1 Month I10 - Essential (primary) hypertension, N18.31 - Chronic kidney disease, stage 3a, N20.0 - Calculus of kidney Blood Urea Nitrogen 1 Month I10 - Essential (primary) hypertension, N18.31 - Chronic kidney disease, stage 3a, N20.0 - Calculus of kidney Coding Level of Care Code Est Pt Level 4 (61070) Diagnoses Dysuria R30.0 Stage 3a chronic kidney disease N18.31 Chronic kidney disease stage 3 subtype: stage 3a (GFR 45-59) Primary hypertension I10 Hypertension type: primary hypertension Renal stone N20.0
[2024-02-27 14:17] VITALS: BP 114/70
== END 2024-02-27 15:12 | disposition home or self-care (01) ==
PROVIDERS: PCP Hospitalist; Visit Provider Internal Medicine Nephrology
DX: R30.0 Dysuria (principal); N18.31 Chronic kidney disease, stage 3a; I10 Essential (primary) hypertension; N20.0 Calculus of kidney
CPT/HCPCS: 99214

== ENCOUNTER → 2024-02-27 13:53 | Outpatient (BNVA) | payer MEDICARE, OTHER, SELFPAY | PROVIDERS: PCP Hospitalist; Visit Provider Internal Medicine Nephrology | DX: I12.9 Hypertensive chronic kidney disease with stage 1 through stage 4 chronic kidney disease, or unspecified chronic kidney disease (principal); E11.22 Type 2 diabetes mellitus with diabetic chronic kidney disease; N18.31 Chronic kidney disease, stage 3a; I48.91 Unspecified atrial fibrillation; E78.5 Hyperlipidemia, unspecified; R30.0 Dysuria; N20.0 Calculus of kidney; Z95.2 Presence of prosthetic heart valve; Z79.899 Other long term (current) drug therapy | CPT/HCPCS: 99212 ==

== ENCOUNTER 2024-03-31 14:29 | Outpatient (AMB) | payer MEDICARE, OTHER, SELFPAY ==
--- NOTE | 2024-03-31 14:47 | HO.NEPHOV ---
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 He had been having edema without any chest pain, shortness of breath, paroxysmal nocturnal dyspnea or orthopnea . He is on Jardiance as well as Spironolactone and closely follows up with Dr Plasencia. He is not very compliant with a low-sodium diet. He has not had any renal stones for a long time. He has not been taking Metolazone. He is frustrated with his general debility [facility] Medical History Hypertension Atrial fibrillation Prostate cancer Hypothyroidism Type I diabetes mellitus Erectile dysfunction Hyperlipidemia GERD (gastroesophageal reflux disease) Cellulitis of left lower extremity Prostate cancer Surgical History H/O aortic valve replacement Social History Alcohol intake: never Patient Tobacco Use Status: Never used Tobacco Review of Systems Const All systems reviewed & are unremarkable except as noted in HPI and below Physical Exam Vital Signs: Last Vital Signs BP 102/60 03/31/24 14:48 Const General: comfortable and no acute distress Orientation/consciousness: patient oriented x3 HEENT Head: Yes normocephalic Mouth: Normal oral and palatal mucosa present Eyes EOM: EOMs intact bilaterally Neck Neck: Yes supple Resp Auscultation: clear to auscultation bilaterally Cardio Jugular venous distension: no JVD Rate: regular rate GI Palpation (GI): Soft to palpation Auscultation: normal bowel sounds General: Yes no CVA tenderness Back/Spine/Pelvis Back: no CVA tenderness Skin General skin exam: no rashes or lesions noted Neuro General: patient oriented x3 and moves all extremities Extrem General: Yes no pedal edema Assessment & Plan Assessment & Plan (1) Renal stone: Code(s): N20.0 - Calculus of kidney Category: Medical (2) Hypertension: Code(s): I10 - Essential (primary) hypertension Category: Medical Qualifiers: Hypertension type: primary hypertension Qualified Code(s): I10 - Essential (primary) hypertension (3) CKD (chronic kidney disease) stage 3, GFR 30-59 ml/min: Code(s): N18.30 - Chronic kidney disease, stage 3 unspecified Category: Medical Qualifiers: Chronic kidney disease stage 3 subtype: stage 3a (GFR 45-59) Qualified Code(s): N18.31 - Chronic kidney disease, stage 3a Plan Mr. Buchanan has CKD stage 3 B @ baseline. His renal function are relatively stable. He has not had any renal stones recently. He can continue current dose of torsemide 2 tabs AM and 1 tablet PM. He is on Spironolactone. He should be strict about low-sodium diet. I did not make any other medication changes today. All questions answered. He is on SGLT2 inhibitor. Follow up given Orders: Orders Creatinine 2 Months I10 - Essential (primary) hypertension, N18.31 - Chronic kidney disease, stage 3a, N20.0 - Calculus of kidney Blood Urea Nitrogen 2 Months I10 - Essential (primary) hypertension, N18.31 - Chronic kidney disease, stage 3a, N20.0 - Calculus of kidney Electrolytes 2 Months I10 - Essential (primary) hypertension, N18.31 - Chronic kidney disease, stage 3a, N20.0 - Calculus of kidney Coding Level of Care Code Est Pt Level 4 (11335) Diagnoses Renal stone N20.0 Primary hypertension I10 Hypertension type: primary hypertension Stage 3a chronic kidney disease N18.31 Chronic kidney disease stage 3 subtype: stage 3a (GFR 45-59)
[2024-03-31 14:48] VITALS: BP 102/60
== END 2024-03-31 15:30 | disposition home or self-care (01) ==
PROVIDERS: PCP Hospitalist; Visit Provider Internal Medicine Nephrology
DX: N20.0 Calculus of kidney (principal); I10 Essential (primary) hypertension; N18.31 Chronic kidney disease, stage 3a
CPT/HCPCS: 99214

== ENCOUNTER → 2024-03-31 14:29 | Outpatient (BNVA) | payer MEDICARE, OTHER, SELFPAY | PROVIDERS: PCP Hospitalist; Visit Provider Internal Medicine Nephrology | DX: E11.22 Type 2 diabetes mellitus with diabetic chronic kidney disease (principal); I12.9 Hypertensive chronic kidney disease with stage 1 through stage 4 chronic kidney disease, or unspecified chronic kidney disease; E78.5 Hyperlipidemia, unspecified; N20.0 Calculus of kidney; N18.31 Chronic kidney disease, stage 3a; Z95.2 Presence of prosthetic heart valve; Z79.899 Other long term (current) drug therapy | CPT/HCPCS: 99212 ==